=== PATIENT | female | born 1955 | race Caucasian/White ===

== ENCOUNTER → 2018-03-06 | Outpatient (CLI) | payer MEDICARE, BC ==
[2018-03-07 14:11] LABS: Stool Occult Bld Immuno 1 Negative (NEGATIVE)
== END ==
LOC: LAB EV 07:00
PROVIDERS: Nurse Practitioner Family
DX: K52.9 Noninfective gastroenteritis and colitis, unspecified (principal); K62.5 Hemorrhage of anus and rectum
CPT/HCPCS: 82274

== ENCOUNTER 2018-05-05 07:44 | Day surgery (SDC) | payer MEDICARE, BC ==
[~2018-05-05] VITALS: Ht 172.7 cm; Wt 73.2 kg
[~2018-05-05 07:44] MED LIST: ALLEGRA ALLERG180 M1; Flonase 0.05% N16 GM; PRAVASTATIN SOD10 MG
[2018-05-05] MEDS ORDERED: ERGO400 PO (08:25)
[2018-05-05] MEDS ORDERED: SYNTHROID25 MCG PO (08:25)
== END 2018-05-05 10:09 | disposition home or self-care (01) ==
LOC: ORSCSDS 07:44
PROVIDERS: Internal Medicine Gastroenterology
PROC: 0DBP8ZX Excision of Rectum, Via Natural or Artificial Opening Endoscopic, Diagnostic (ICD-10-PCS; principal; 2018-05-05 09:15)
DX: K62.5 Hemorrhage of anus and rectum (principal); K62.1 Rectal polyp; K64.4 Residual hemorrhoidal skin tags; K64.8 Other hemorrhoids; Z79.899 Other long term (current) drug therapy
CPT/HCPCS: 88305; J7120

== ENCOUNTER → 2018-11-16 | Outpatient (CLI) | payer MEDICARE ==
[~2018-11-16] MED LIST changes: +ERGO400 PO; +SYNTHROID25 MCG PO
== END | disposition home or self-care (01) ==
LOC: LAB SHORT 11:09 → PLD 11:09
DX: L82.1 Other seborrheic keratosis (principal)
CPT/HCPCS: 88305

== ENCOUNTER → 2019-06-26 | Outpatient (CLI) | payer MEDICARE ==
[2019-06-28 15:07] LABS: HPV 16 Negative (Negative); HPV 18 Negative (Negative); HPV OTHER HR TYPES Negative (Negative)
== END | disposition home or self-care (01) ==
LOC: LAB 20:15 → LAB SHORT 20:15
PROVIDERS: Physician Assistant
DX: Z12.4 Encounter for screening for malignant neoplasm of cervix (principal)
CPT/HCPCS: 87624; G0145